=== PATIENT | male | born 1935 | race Caucasian/White ===

== ENCOUNTER 2019-12-28 12:34 | Inpatient (IN) ==
[2019-12-28] MEDS ORDERED: VANCOMYCIN INJ 1,500 MG in SODIUM CHLORIDE 0.9% 250 ML IV STA (13:43)
[2019-12-28 14:11] LABS: Basophils # 0.1 10*3/uL (0.0-0.2); Basophils % 0.7 % (0.0-0.8); Eosinophils # 0.2 10*3/uL (0.0-0.87); Eosinophils % 2.2 % (0.00-10.9); Hematocrit 41.1 VOL% (42.0-52.0); Hemoglobin 12.8 GM/DL (14.0-18.0); Immature Granulocytes % 0.5 %; Immature Granulocytes Absolute 0.04 #; Lymphocytes # 1.1 10*3/uL (1.4-4.0); Lymphocytes % 14.7 % (21.2-54.2); Mean Corpuscular HGB Conc 31.1 GM/DL (32-36); Mean Platelet Volume 8.3 FL (9.6-12.0); Monocytes % 7.7 % (1.7-12.7); Neutrophils % 74.2 % (38.7-73.9); Platelet Count 251 T/CUMM (130-400); Red Blood Count 4.67 MC/CUMM (3.8-5.5); White Blood Count 7.7 T/CUMM (4-12)
[2019-12-28 14:18] LABS: INR 1.2; PT Patient Result 12.8 SECS (9.8-11.9); Partial Thromboplastin Time 32.8 SECS (23.9-33.8)
[2019-12-28 14:28] LABS: Alanine Aminotransferase 36 U/L (16-61); Albumin 2.5 G/DL (3.4-5.0); Alkaline Phosphatase 95 U/L (45-117); Aspartate Amino Transferase 14 U/L (0-37); Blood Urea Nitrogen 28 MG/DL (7-18); Calcium 9.2 MG/DL (8.5-10.1); Estimated Glom Filtration Rate 52 ML/MIN; Ferritin 641.2 ng/ml (26-388); Glucose 162 MG/DL (74-106); Osmolality,Calculated 279.1 MOS/KG (273-304); Total Protein 7.6 G/DL (6.4-8.3); Troponin I < 0.015 NG/ML (0.00-0.045)
[2019-12-28] MEDS ORDERED: diphenhydrAMINE 50 MG/1 ML VIAL ONE (16:58)
[2019-12-28] MEDS ORDERED: diphenhydrAMINE 50 MG/1 ML VIAL IV STA (17:07)
[2019-12-28] MEDS ORDERED: MORPHINE 4 MG/1 ML VIAL IV PRN (17:24)
[2019-12-28] MEDS ORDERED: ONDANSETRON 4 MG/2 ML VIAL IV PRN (17:24)
[2019-12-28] MEDS ORDERED: DEXTROSE 10% 250 ML BAG IV PRN (17:24)
[2019-12-28] MEDS ORDERED: GLUCAGON 1 MG VIAL IM PRN (17:24)
[2019-12-28] MEDS ORDERED: diphenhydrAMINE 50 MG/1 ML VIAL IV PRN (18:13)
[2019-12-28] MEDS: MEROPENEM 500 MG in SODIUM CHLORIDE 0.9% 100 ML IV SCH (21:15)
[2019-12-28] MEDS: SODIUM CHLORIDE 0.9% 1,000 ML IV SCH (21:15)
[2019-12-28] MEDS: VANCOMYCIN INJ 1,500 MG in SODIUM CHLORIDE 0.9% 500 ML IV SCH (21:51)
[2019-12-28] MEDS: INSULIN LISPRO 100 UNIT/ML SUBCUT SCH (22:43)
[2019-12-29] MEDS: MEROPENEM 500 MG in SODIUM CHLORIDE 0.9% 100 ML IV SCH ×4 (02:08→20:52)
[2019-12-29] MEDS: SODIUM CHLORIDE 0.9% 1,000 ML IV SCH ×2 (06:12→18:49)
[2019-12-29 06:32] LABS: Basophils # 0.1 10*3/uL (0.0-0.2); Basophils % 0.6 % (0.0-0.8); Eosinophils # 0.3 10*3/uL (0.0-0.87); Eosinophils % 3.7 % (0.00-10.9); Hematocrit 36.1 VOL% (42.0-52.0); Hemoglobin 10.8 GM/DL (14.0-18.0); Immature Granulocytes % 0.5 %; Immature Granulocytes Absolute 0.04 #; Lymphocytes # 1.8 10*3/uL (1.4-4.0); Lymphocytes % 21.9 % (21.2-54.2); Mean Corpuscular HGB Conc 29.9 GM/DL (32-36); Mean Corpuscular Volume 91.6 FL (87-102); Mean Platelet Volume 9.7 FL (9.6-12.0); Monocytes % 9.4 % (1.7-12.7); Neutrophils % 63.9 % (38.7-73.9); Platelet Count 254 T/CUMM (130-400); Red Blood Count 3.94 MC/CUMM (3.8-5.5); Red Cell Distribution Width 14.8 % (9.3-17.3); White Blood Count 8.3 T/CUMM (4-12)
[2019-12-29 07:13] LABS: Albumin 2.2 G/DL (3.4-5.0); Bilirubin,Total 0.5 MG/DL (0.2-1.0); Calcium 8.7 MG/DL (8.5-10.1); Osmolality,Calculated 282.4 MOS/KG (273-304); Risk Ratio 5.46; Thyroid Stimulating Hormone 2.61 uIU/ml (0.358-3.74); Total Protein 6.9 G/DL (6.4-8.3); VLDL CHOLESTEROL 25.8 MG/DL
[2019-12-29 07:23] LABS: Apearance,Urine CLEAR (Clear); Bilirubin,Urine Negative (Negative); Blood, Urine Negative (Negative); Glucose,Urine (UA) Negative (Negative); Hyaline Casts,Urine 1 /LPF (0-3); Ketones,Urine Negative (Negative); Nitrite,Urine Negative (Negative); Protein,Urine Negative; RBC,Urine 1 /HPF (0-4); Squamous Epithelial Cell,Urine Occasional /HPF (0-10); Urine Color Yellow (Yellow); Urine Specific Gravity 1.016 (1.001-1.035); Urine Urobilinogen < 2.0 EU/DL (0.2-1.0); WBC,Urine 1 /HPF (0-6)
[2019-12-29] MEDS ORDERED: ACETAMINOPHEN 325 MG TABLET PO PRN (07:41)
[2019-12-29] MEDS ORDERED: SIMETHICONE CHEW 125 MG TABLET PO PRN (07:42)
[2019-12-29] MEDS: INSULIN LISPRO 100 UNIT/ML SUBCUT SCH ×4 (09:28→21:53)
[2019-12-29] MEDS: METOPROLOL TARTRATE 50 MG TABLET PO SCH ×3 (13:01→20:54)
[2019-12-29] MEDS: VANCOMYCIN INJ 1,500 MG in SODIUM CHLORIDE 0.9% 500 ML IV SCH (16:26)
[2019-12-29] MEDS: LEVOTHYROXINE 100 MCG TABLET PO SCH (20:54)
[2019-12-29] MEDS: LOSARTAN 50 MG TABLET PO SCH (20:54)
[2019-12-29] MEDS: allopurinoL 100 MG TABLET PO SCH (20:54)
[2019-12-30] MEDS: SODIUM CHLORIDE 0.9% 1,000 ML IV SCH ×3 (00:35→21:04)
[2019-12-30] MEDS: MEROPENEM 500 MG in SODIUM CHLORIDE 0.9% 100 ML IV SCH ×4 (02:55→20:55)
[2019-12-30 07:02] LABS: Albumin 2.1 G/DL (3.4-5.0); Bilirubin,Total 0.7 MG/DL (0.2-1.0); Calcium 8.6 MG/DL (8.5-10.1); Osmolality,Calculated 284.4 MOS/KG (273-304); Total Protein 6.5 G/DL (6.4-8.3)
[2019-12-30 07:05] LABS: Basophils # 0.1 10*3/uL (0.0-0.2); Basophils % 0.7 % (0.0-0.8); Eosinophils # 0.4 10*3/uL (0.0-0.87); Eosinophils % 4.8 % (0.00-10.9); Hematocrit 34.3 VOL% (42.0-52.0); Hemoglobin 10.2 GM/DL (14.0-18.0); Immature Granulocytes % 0.7 %; Immature Granulocytes Absolute 0.05 #; Lymphocytes # 1.9 10*3/uL (1.4-4.0); Lymphocytes % 24.8 % (21.2-54.2); Mean Corpuscular HGB Conc 29.7 GM/DL (32-36); Mean Platelet Volume 8.4 FL (9.6-12.0); Monocytes % 9.5 % (1.7-12.7); Neutrophils % 59.5 % (38.7-73.9); Platelet Count 273 T/CUMM (130-400); Red Blood Count 3.73 MC/CUMM (3.8-5.5); Red Cell Distribution Width 14.9 % (9.3-17.3); White Blood Count 7.5 T/CUMM (4-12)
[2019-12-30] MEDS: INSULIN LISPRO 100 UNIT/ML SUBCUT SCH ×4 (08:35→21:03)
[2019-12-30] MEDS: METOPROLOL TARTRATE 50 MG TABLET PO SCH ×2 (08:41→21:00)
[2019-12-30] MEDS ORDERED: DEXTROSE 50% 25 GM/50 ML VIAL IV PRN (10:27)
[2019-12-30] MEDS: VANCOMYCIN INJ 1,500 MG in SODIUM CHLORIDE 0.9% 500 ML IV SCH (13:07)
[2019-12-30] MEDS: ALBUTEROL/IPRATROPIUM 3 ML NEB RESP TX PRN (16:01)
[2019-12-30] MEDS: allopurinoL 100 MG TABLET PO SCH (21:00)
[2019-12-30] MEDS: LEVOTHYROXINE 100 MCG TABLET PO SCH (21:00)
[2019-12-30] MEDS: LOSARTAN 50 MG TABLET PO SCH (21:00)
[2019-12-31] MEDS: MEROPENEM 500 MG in SODIUM CHLORIDE 0.9% 100 ML IV SCH ×4 (03:17→21:02)
[2019-12-31] MEDS: SODIUM CHLORIDE 0.9% 1,000 ML IV SCH ×2 (05:43→15:08)
[2019-12-31 05:53] LABS: Basophils # 0.1 10*3/uL (0.0-0.2); Basophils % 0.7 % (0.0-0.8); Eosinophils # 0.6 10*3/uL (0.0-0.87); Eosinophils % 6.2 % (0.00-10.9); Hematocrit 34.8 VOL% (42.0-52.0); Hemoglobin 10.4 GM/DL (14.0-18.0); Immature Granulocytes % 0.3 %; Immature Granulocytes Absolute 0.03 #; Lymphocytes # 1.8 10*3/uL (1.4-4.0); Lymphocytes % 20.2 % (21.2-54.2); Mean Corpuscular HGB Conc 29.9 GM/DL (32-36); Mean Corpuscular Volume 90.2 FL (87-102); Mean Platelet Volume 8.6 FL (9.6-12.0); Monocytes % 8.4 % (1.7-12.7); Neutrophils % 64.2 % (38.7-73.9); Platelet Count 275 T/CUMM (130-400); Red Blood Count 3.86 MC/CUMM (3.8-5.5); Red Cell Distribution Width 15.1 % (9.3-17.3); White Blood Count 8.8 T/CUMM (4-12)
[2019-12-31 06:19] LABS: Albumin 2.1 G/DL (3.4-5.0); Bilirubin,Total 0.5 MG/DL (0.2-1.0); Calcium 8.6 MG/DL (8.5-10.1); Osmolality,Calculated 281.5 MOS/KG (273-304); Total Protein 6.9 G/DL (6.4-8.3)
[2019-12-31] MEDS: ALBUTEROL/IPRATROPIUM 3 ML NEB RESP TX PRN ×2 (07:06→12:43)
[2019-12-31] MEDS ORDERED: MIDAZOLAM 2 MG/2 ML VIAL ONE (07:58)
[2019-12-31] MEDS ORDERED: KETAMINE 500 MG/10 ML VIAL ONE (07:58)
[2019-12-31] MEDS ORDERED: DEXMEDETOMIDINE 200 MCG/2 ML VIAL ONE (07:58)
[2019-12-31] MEDS: VANCOMYCIN INJ 1,500 MG in SODIUM CHLORIDE 0.9% 500 ML IV SCH (08:58)
[2019-12-31] MEDS: INSULIN LISPRO 100 UNIT/ML SUBCUT SCH ×4 (08:59→21:08)
[2019-12-31] MEDS: METOPROLOL TARTRATE 50 MG TABLET PO SCH ×3 (09:00→21:14)
[2019-12-31] MEDS ORDERED: DEXTROSE 50% 25 GM/50 ML VIAL IV PRN (14:49)
[2019-12-31] MEDS ORDERED: GLUCAGON 1 MG VIAL IM PRN (14:49)
[2019-12-31] MEDS: LOSARTAN 50 MG TABLET PO SCH ×2 (21:04→21:14)
[2019-12-31] MEDS: LEVOTHYROXINE 100 MCG TABLET PO SCH (21:04)
[2019-12-31] MEDS: allopurinoL 100 MG TABLET PO SCH (21:04)
[2019-12-31] MEDS: calcitrioL 0.25 MCG CAPSULE PO SCH (21:04)
[2020-01-01] MEDS: VANCOMYCIN INJ 1,500 MG in SODIUM CHLORIDE 0.9% 500 ML IV SCH ×2 (00:30→21:24)
[2020-01-01] MEDS: SODIUM CHLORIDE 0.9% 1,000 ML IV SCH (01:30)
[2020-01-01] MEDS: MEROPENEM 500 MG in SODIUM CHLORIDE 0.9% 100 ML IV SCH ×4 (03:46→23:12)
[2020-01-01 07:13] LABS: Basophils # 0.1 10*3/uL (0.0-0.2); Basophils % 0.5 % (0.0-0.8); Eosinophils # 0.2 10*3/uL (0.0-0.87); Eosinophils % 1.4 % (0.00-10.9); Hematocrit 38.1 VOL% (42.0-52.0); Hemoglobin 11.5 GM/DL (14.0-18.0); Immature Granulocytes % 0.8 %; Lymphocytes # 2.9 10*3/uL (1.4-4.0); Lymphocytes % 22.1 % (21.2-54.2); Mean Corpuscular HGB Conc 30.2 GM/DL (32-36); Mean Corpuscular Volume 91.6 FL (87-102); Mean Platelet Volume 8.6 FL (9.6-12.0); Monocytes % 6.9 % (1.7-12.7); Neutrophils % 68.3 % (38.7-73.9); Platelet Count 298 T/CUMM (130-400); Red Blood Count 4.16 MC/CUMM (3.8-5.5); Red Cell Distribution Width 15.2 % (9.3-17.3); White Blood Count 13.2 T/CUMM (4-12)
[2020-01-01 07:22] LABS: Calcium 8.9 MG/DL (8.5-10.1); Osmolality,Calculated 287.1 MOS/KG (273-304)
[2020-01-01] MEDS: INSULIN LISPRO 100 UNIT/ML SUBCUT SCH ×4 (09:09→21:25)
[2020-01-01] MEDS: METOPROLOL TARTRATE 50 MG TABLET PO SCH ×2 (09:15→21:25)
[2020-01-01] MEDS: ASPIRIN EC 81 MG TABLET PO SCH (09:16)
[2020-01-01] MEDS: SODIUM HYPOCHLORITE 0.25% IRRIG 473 ML BOTTLE TOP SCH (11:08)
[2020-01-01] MEDS ORDERED: FUROSEMIDE 40 MG/4 ML VIAL IV ONE (19:22)
[2020-01-01] MEDS: LOSARTAN 50 MG TABLET PO SCH (21:25)
[2020-01-01] MEDS: calcitrioL 0.25 MCG CAPSULE PO SCH (21:26)
[2020-01-01] MEDS: allopurinoL 100 MG TABLET PO SCH (21:26)
[2020-01-01] MEDS: LEVOTHYROXINE 100 MCG TABLET PO SCH (21:26)
[2020-01-02] MEDS: MEROPENEM 500 MG in SODIUM CHLORIDE 0.9% 100 ML IV SCH ×4 (03:54→22:17)
[2020-01-02] MEDS: INSULIN LISPRO 100 UNIT/ML SUBCUT SCH ×4 (09:17→22:17)
[2020-01-02] MEDS: METOPROLOL TARTRATE 50 MG TABLET PO SCH ×2 (09:17→22:19)
[2020-01-02] MEDS: ASPIRIN EC 81 MG TABLET PO SCH (09:17)
[2020-01-02] MEDS: SODIUM HYPOCHLORITE 0.25% IRRIG 473 ML BOTTLE TOP SCH (09:17)
[2020-01-02] MEDS: ENOXAPARIN 40 MG/0.4 ML SYRINGE SUBCUT SCH (14:10)
[2020-01-02] MEDS: TORSEMIDE 20 MG TABLET PO SCH (14:13)
[2020-01-02] MEDS: VANCOMYCIN INJ 1,500 MG in SODIUM CHLORIDE 0.9% 500 ML IV SCH (16:28)
[2020-01-02] MEDS: LEVOTHYROXINE 100 MCG TABLET PO SCH (22:18)
[2020-01-02] MEDS: LOSARTAN 50 MG TABLET PO SCH (22:19)
[2020-01-02] MEDS: calcitrioL 0.25 MCG CAPSULE PO SCH (22:20)
[2020-01-02] MEDS: allopurinoL 100 MG TABLET PO SCH (22:21)
[2020-01-03] MEDS ORDERED: SKIN HEALING OINT (AQUAPHOR) 50 GM TUBE TOP PRN (01:16)
[2020-01-03] MEDS: MEROPENEM 500 MG in SODIUM CHLORIDE 0.9% 100 ML IV SCH ×3 (03:20→18:04)
[2020-01-03 06:32] LABS: Calcium 9.1 MG/DL (8.5-10.1)
[2020-01-03] MEDS: ASPIRIN EC 81 MG TABLET PO SCH (09:45)
[2020-01-03] MEDS: METOPROLOL TARTRATE 50 MG TABLET PO SCH (09:45)
[2020-01-03] MEDS: TORSEMIDE 20 MG TABLET PO SCH (09:45)
[2020-01-03] MEDS: SODIUM HYPOCHLORITE 0.25% IRRIG 473 ML BOTTLE TOP SCH (09:46)
[2020-01-03] MEDS: INSULIN LISPRO 100 UNIT/ML SUBCUT SCH ×3 (09:46→18:05)
[2020-01-03] MEDS: VANCOMYCIN INJ 1,500 MG in SODIUM CHLORIDE 0.9% 500 ML IV SCH (11:09)
[2020-01-03 12:14] VITALS: BP 128/59
[2020-01-03] MEDS: ENOXAPARIN 40 MG/0.4 ML SYRINGE SUBCUT SCH (13:04)
== END 2020-01-03 15:40 | disposition expired | DRG 240 ==
LOC: N.ED 12:34 → SUATTDRO 17:24 → N.EDINP 17:24 → N.3E 18:53
PROVIDERS: ADMIT Internal Medicine; ATTEND Internal Medicine Cardiovascular Disease